=== PATIENT | female | born 1960 | race Caucasian/White ===

== ENCOUNTER 2018-01-28 12:06 | Emergency (ER) | payer BC ==
[~2018-01-28] VITALS: Ht 165.1 cm; Wt 69.5 kg
[~2018-01-28 12:06] MED LIST: CEPHALEXIN500 M1 PO; FISH OIL1000 MG PO; GLUCOPHAGE1000 MG PO; HYZAAR 50-12.1 UDTAB PO; MULTIPLE VITAMI1 CAP PO; NASONEX SPRAY17 GM NS; ZOCOR 40MG40 MG PO
[2018-01-28 12:14] VITALS: BP 155/70; PULSE 53; TEMP 97.5
== END 2018-01-28 14:31 | disposition home or self-care (01) ==
LOC: COL.ER 12:06
DX: S92.342A Displaced fracture of fourth metatarsal bone, left foot, initial encounter for closed fracture (principal); I10 Essential (primary) hypertension; Z79.84 Long term (current) use of oral hypoglycemic drugs; W22.8XXA Striking against or struck by other objects, initial encounter

== ENCOUNTER 2021-09-08 11:35 | Outpatient (CLI) | payer BC ==
[2021-09-08] VITALS (9 sets, daily range): BP systolic 126–146; BP diastolic 65–104; PULSE 65–76; TEMP 100.4
[~2021-09-08] VITALS: Ht 165.1 cm; Wt 92.2 kg
[~2021-09-08 11:35] MED LIST changes: +HYZAAR 25 MG-101 TAB PO; -HYZAAR 50-12.1 UDTAB PO
[2021-09-08] MEDS ORDERED: LEXAPRO 10MG10 MG PO (11:56)
[2021-09-08] MEDS ORDERED: K-TAB20 PO (11:57)
[2021-09-08] MEDS ORDERED: B-121000 MCG PO (11:58)
[2021-09-08] MEDS ORDERED: VITAMIN D 400400 IU PO (11:58)
[2021-09-08] MEDS ORDERED: PROBIOTIC BLEN1 EACH PO (11:59)
[2021-09-08] MEDS ORDERED: PHARMASSURE ZIN50 MG PO (11:59)
[2021-09-08] MEDS ORDERED: VITAMINC1000TA PO (12:00)
== END 2021-09-08 14:36 ==
LOC: EUO 11:35
DX: U07.1 COVID-19 (principal); E11.22 Type 2 diabetes mellitus with diabetic chronic kidney disease; N18.9 Chronic kidney disease, unspecified; I51.9 Heart disease, unspecified
CPT/HCPCS: M0247; Q0247